=== PATIENT | female | born 2005 | race Caucasian/White ===

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

== ENCOUNTER 2023-01-15 14:55 | Emergency (ER) | payer BC, SELFPAY ==
[2023-01-15 15:03] VITALS: BP 141/71; PULSE 121; RESP 16; TEMP 36.3; O2SAT 98
--- NOTE | 2023-01-15 15:14 | ED.GENADUL_ITS ---
Discharge Plan Disposition Condition: Stable Discharge Details Chief Complaint: PsychEval Clinical Impression: Suicidal ideations, Superficial abrasion Primary Care Provider: Joshua Thomason ED Provider: Robina Riggs Home Meds and New Rx's Prescriptions: No Action budesonide-formoterol [Symbicort] 80-4.5 mcg/actuation HFA aerosol inhaler 2 puff inhalation BID PRN Rx Instructions: 2 inhalations twice daily; rinse mouth after use may use 1-2 inhalations every 4-6 hours as needed for wheezing, persistent cough; no more than 12 inhalations in a 24-hour period cholecalciferol (vitamin D3) 50 mcg (2,000 unit) capsule 50 mcg PO DAILY (DME) Aerochamber Plus Flow-Vu 1 EACH spacer 1 inhaler Inhalation PRN Qty: 1 Patient Comments: Per pt.'s mother, pt. only uses when sick. prazosin 1 mg capsule 1 mg PO QHS Qty: 30 1RF Rx Instructions: Take 1 cap 30 minutes before bedtime testosterone 50 mg/mL Solution 3.5 mg IM 4-8XD Medical Decision Making 17-year-old patient presents for evaluation of depression and suicidal ideation. Patient with significant suicidal ideation and self-harm today. They have multiple plans to hurt themselves. Patient is medically cleared for psychiatric evaluation. Signed out to oncoming provider with psychiatric evaluation pending. HPI General Date/Time Provider Initiated Documentation: 01/15/23 15:05 . HPI Narrative: 17-year-old patient presents for evaluation of suicidal ideation. Patient has longstanding history of depression with somewhat chronic suicidal ideation. Patient is much more suicidal today than usual. They did self-harm earlier today. Multiple self-inflicted wounds to bilateral arms as well as abdomen. They stated that they used a razor at that time. Immunizations are up-to-date. Patient had an appointment with a new psychiatrist via telemedicine today. The psychiatrist was concerned that patient was unable to contract for safety. Patient admits that they are unable to contract for safety. Denies any alcohol or recreational drug use. They state they have been taking her medications as prescribed. Denies any medical concerns at this time. They have been eating and drinking without difficulty. They do have a baseline essential tremor to upper extremities bilaterally. Related Data Home Medications Medication Instructions Recorded Confirmed inhalational spacing device #1 tube 11/28/16 01/15/23 (Aerochamber Plus Flow-Vu) cholecalciferol (vitamin D3) 50 50 mcg PO DAILY 01/30/22 01/15/23 mcg (2,000 unit) capsule testosterone 50 mg/mL 3.5 mg IM 4-8XD 08/22/22 01/15/23 intramuscular solution budesonide-formoterol HFA 80 2 puff inhalation BID PRN 12/02/22 01/15/23 mcg-4.5 mcg/actuation aerosol inhaler (Symbicort) prazosin 1 mg capsule 1 mg PO QHS #30 caps 12/04/22 01/15/23 Previous Rx's Medication Instructions Recorded prazosin 1 mg capsule 1 mg PO QHS #30 caps 12/04/22 Allergies Allergy/AdvReac Type Severity Reaction Status Date / Time cigarette smoke Allergy Verified 01/15/23 18:40 No Known Drug Allergies Allergy Verified 12/02/22 11:19 pollen extracts Allergy Verified 01/15/23 18:40 DUST Allergy Uncoded 01/15/23 18:40 General Stated Complaint: PsychEval SHELAI: 2 Review of Systems Psychiatric Comments: + Suicidal ideation, + self-harm PFSH All Active Problems (Updated 01/15/23 @ 19:43 by Robina Riggs MD) Superficial abrasion (Acute) 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 Seen by [facility]. at 16 now [facility] taking [facility] BMI (body mass index), pediatric, 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% for age (Acute 01/26/13) nutriotin consult and labs- Normal 02/07 Suicidal ideations (Acute 12/04/17) suicide attempt x2 Mild persistent asthma without complication (Acute 01/26/13) Insomnia (Acute 02/05/18) Depressive disorder (Acute 12/29/17) [facility] trial of Wellbutrin and Lexapro were not helpful Acanthosis nigricans (Acute) Medical History ASTHMA MILD INTERMIT - COVID-19 Learning disability Surgical History Tonsillectomy and adenoidectomy age 2 1/2 years Family History Mother Asthma Father Healthy adult on routine physical examination Social History Smoking/Tobacco Use Status: Never Second Hand Exposure: No Smoking risk assessment performed?: Yes Alcohol Intake: never Substance use type: marijuana Adopted: No Foster care: No Education Level: high school Pets and animals: Yes (1 cat) Pets and animals: cat(s) Current gender identity: trans [id number] Seatbelt use: always Helmet use: Yes Helmet use: always Water heater temp set <120 deg: Yes Fire extinguisher in home: Yes Carbon monox detector in home: Yes Firearms in home: No Do you feel safe at home: Yes Exam Narrative Exam Narrative: General: non-toxic, no respiratory distress, comfortable HEENT: normocephalic, atraumatic, lids and lashes normal, PERRL, EOMI, anicteric sclera, no conjunctival injection, moist oral mucosa Card: regular rate and rhythm, S1S2, no murmurs, rubs, or gallops Lungs: good air entry, clear to auscultation bilaterally. no wheezes, rales, rhonchi, or retractions Abd: soft, non-tender, non-distended, normal bowel sounds, no rebound or guarding, no peritoneal signs Musculoskeletal: full range of motion of arms and legs, no tenderness to palpation. no clubbing, cyanosis, or edema Neurologic: appropriate for age, strength normal Psych: alert and oriented, + suicidal ideation Skin: Multiple superficial abrasions to forearms bilaterally and anterior abdomen, no petechiae, no lesions, warm and dry Course Vital Signs Vital signs: Vital Signs Temperature 36.3 C L 01/15/23 15:03 Pulse 121 H 01/15/23 15:03 Respiratory Rate 16 01/15/23 15:03 Blood Pressure 141/71 H 01/15/23 15:03 Pulse Oximetry 98 01/15/23 15:03 Temperature 36.3 C L 01/15/23 15:03 Temperature Source Skin 01/15/23 15:03 Pulse 121 H 01/15/23 15:03 Respiratory Rate 16 01/15/23 15:03 Respiratory Effort Normal 01/15/23 15:05 Blood Pressure 141/71 H 01/15/23 15:03 Pulse Oximetry 98 01/15/23 15:03 Oxygen Delivery Method Room Air 01/15/23 15:03 Oxygen Flow Rate 0 01/15/23 15:03
[2023-01-15 16:07] LABS: Abs Immature Grans 0.02 10^3/uL (0.0-0.06); Absolute Basophil Count 0.02 10^3/uL (0.0-0.2); Absolute Eosinophil Count 0.05 10^3/uL (0.0-0.7); Absolute Lymphocyte Count 1.97 10^3/uL (1.2-3.4); Absolute Monocyte Count 0.32 10^3/uL (0.1-0.8); Absolute Neutrophil Count 3.22 10^3/uL (1.2-6.7); Basophils % 0.4; Eosinophils % 0.9; HCT 48.9 % (36.0-46.0); HGB 16.4 g/dL (11.2-15.7); Immature Grans % 0.4; Lymphocytes % 35.2; MCH 28.1 pg (27.0-33.0); MCHC 33.5 % (32.0-36.0); MCV 84 fL (80-95); MPV 11.6 fL (8.0-11.0); Monocytes % 5.7; Neutrophils % 57.4; Platelet Count 212 10^3/uL (130-400); RBC 5.84 10^6/uL (3.93-5.22); RDW 12.6 % (11.7-14.6); RDW-SD 38.6 fL
[2023-01-15 16:15] LABS: Bilirubin Moderate (Negative); Blood Trace-intact (Negative); Clarity Clear (Clear); Glucose 100 mg/dL (Negative); Ketones 40 mg/dL (Negative); Leukocyte Esterase Moderate (Negative); Nitrite Negative (Negative); pH 7.5 (5-8)
[2023-01-15 16:25] LABS: Bacteria Moderate HPF (Negative); Casts 0-2 Fine Granular LPF (Negative); Crystals Negative HPF (Negative); Epithelial Cells Rare HPF (Negative); Mucus Trace (Negative); Other Cells Few Renal (Negative); RBC 0-2 HPF (0-2)
[2023-01-15 16:26] LABS: C & S Indicated? Yes
[2023-01-15 16:28] LABS: *AMPHETAMINES SCREEN URINE Negative (Negative); *BARBITURATES SCREEN URINE Negative (Negative); *BENZODIAZEPINES SCREEN URINE Negative (Negative); Cannabinoids THC Negative (Negative); Cocaine Screen,Urine Negative (Negative); METHADONE URINE SCREEN Negative (Negative); OPIATES URINE SCREEN Negative (Negative); Tricyclic Antidepressants Negative (Negative)
[2023-01-15 16:30] LABS: Anion Gap 9.4 mmol/L (3-11); BUN 8 mg/dL (7-18); CO2 27.6 mmol/L (21.0-32.0); CREATININE 0.9 mg/dL (0.55-1.02); Calcium 9.8 mg/dL (8.5-10.1); Chloride 105 mmol/L (98-107); Estimated GFR 94.44 (mL/min/1.73m2); Glucose 116 mg/dL (74-106); Potassium 3.7 mmol/L (3.5-5.1); Sodium 142 mmol/L (136-145); TSH (W/Ref FT4) 1.02 uIU/mL (0.52-4.13)
[2023-01-15 16:32] LABS: ETHANOL BLOOD < 3.0 mg/dL (<10)
[2023-01-15 16:40] LABS: Salicylate < 2.8 mg/dL (<2.8)
[2023-01-15 16:41] LABS: Acetaminophen < 2 ug/mL (10-30)
[2023-01-15] MEDS: diphenhydrAMINE 25 MG CAP 50 MG PO (20:41)
[2023-01-15] MEDS: diazePAM 5 MG TAB PO (20:41)
[2023-01-15] MEDS: Melatonin 3 MG TAB 9 MG PO (20:41)
--- NOTE | 2023-01-15 23:02 | PDOC.MHCN_ITS ---
Date of service: 01/15/23 Time of Service: 19:10 PHQ-9 Over the last 2 weeks, how often have you been bothered by any of the following problems? 1. Little interest or pleasure in doing things: more than half the days 2. Feeling down, depressed, or hopeless: nearly every day 3. Trouble falling or staying asleep, or sleeping too much: more than half the days 4. Feeling tired or having little energy: several days 5. Poor appetite or overeating: nearly every day 6. Feeling bad about yourself - or that you are a failure or have let yourself and your family down: nearly every day 7. Trouble concentrating on things, such as reading the newspaper or watching television: more than half the days 8. Moving or speaking so slowly that other people could have noticed? - Or the opposite - being so fidgety or restless that you have been moving around a lot more than usual: more than half the days 9. Thoughts that you would be better off or of hurting yourself in some way: more than half the days Total score: 20 If you checked off any problems, how difficult have these problems made it for you to do your work, take care of things at home, or get along with other people?: somewhat difficult Source: Developed by Drs. Guy العراقي, Nika Perkins, Tio Flores and colleagues, with an educational spencer from [employer]. Suicide Severity Rate CSSRS Have you wished you were or wished you could go to sleep and not wake up?: Yes Have you actually had any thoughts of killing yourself?: Yes CSSRS2 Have you been thinking about how you might do this?: Yes Have you had these thoughts and had some intention of acting on them?: Yes Have you started to work out or worked out the details of how to kill yourself? Do you intend to carry out this plan?: Yes CSSRS3 Have you ever done anything, started to do anything or prepared to do anything to end your life?: Yes CSSRS4 Was this within the past three months?: Yes Screening Score Total Score: 8 Screening: Positive Mental Health Emergency Note Release [facility] release signed:: Yes Reason for Visit Client is Mayito Mayer 17-year-old transgender male who presented into [facility] ED tonight at the recommendation of his new therapist after their first session due to several concerning statements that the client made during that period of time. Client appeared to this typewriter mechanic as disheveled and would not make eye contact client has been off his medications for the past few days saying that they are not helping. Client reported that he wanted to and has no one to talk to so he bottles it all up client also reported that he has thoughts of himself and others causing harm to him in respect of taking him apart limb by limb, draining all his blood out of his body, taking out parts of his skull, etc. Per clients report the thoughts of violence that he has towards himself are more violent and aggressive than the thoughts he has of someone else causing violence to him. Client reported that he cannot sleep and that he has not been eating and has lost 20 to 30 pounds in the past month. Client has previously been hospitalized at [facility] twice and at [facility] both places were not helpful, and client reported previous bullying at [facility]. 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 The client answered yes to all the CSSRS questions and did identify a plan with this typewriter mechanic of an overdose in addition to having intent and access to medications that his mother keeps in the car. During the assessment the client was in fact currently having thoughts of causing harm to himself. Client engages in non-suicidal self-injury consisting of cutting and burning himself. The last time the client cut himself was earlier today and the last time the client burned himself was two months ago mother had no idea of the burning behavior. Client's mother reported that she did remove all sharps out of the house, but client went into the mother's room and took her razor that she uses to shave and proceeded to break it and cut his arms. Client reported that they use an edible once a month and that his mom and brother are the clients natural support systems. When client was asked about his strengths client made the list made-up sound, and mom suggested that one of his strengths was his schoolwork. This report he is also experiencing some hallucinations consisting of seeing shadows and figures moving and or running quickly past him. Client also reported that his PTSD is becoming more severe in addition to his depression and anxiety. Client was suggested 2 seek any patient facility treatment at this time, client decided to go voluntary but was told with the information he provided during the assessment if he chose to leave at any time during the night police would be called and he would be taken back to the Ed and held involuntarily. Client will be reassessed in the morning and hopefully will be accepted in an inpatient facility. In the last 2 weeks has the pt presented for ES prior to today?: Unknown Client Information Client is: [facility]: Yes Non Suicidal Self Injury Current: Yes, Client reported burning and cutting. History: yes, Client last cut 01/15 and last burned himself two months ago Safety Risk/Harm to Self or Others Current Ideation to Harm Self or Others: Yes to self. Intent: yes, has intent. Plan: yes,has a plan. History of suicide attempt: yes,history of suicide attempt reported. Details of previous suicide attempt: overdose Risk: Does risk to harm exist?: yes. Risk: Severe Duty to warn indicated: No Asssessment/Mental Status Appearance: Disheveled Attitude: Cooperative and Hostile Behavior: Agitated Speech: Normal Affect: Normal Mood: Stressed, Depressed, Anxious and Irritable Thought process: Unremarkable Hallucinations: yes, Visual Delusions: No evidence Attention: Unremarkable Perception: Not impaired Orientation: Fully orientated Memory: Intact Insight: Fair Judgement: Fair Neurovegetative Symptoms Sleep: Decrease Appetitie: Decrease Interests: Decrease Energy: No change Libido: Not applicable Substance Use: Other Drug Issues: Other Do you use nicotine?: No Have you used substances in the last 7 days?: No Additional Issues: Assaultive/Threatening Behavior: No Medical Concerns: No Client engaged in active self harm w/weapon: Yes Threatening to run away: No Child reported abuse/neglect: No Voluntarily presenting for services: No Domestic violence is a concern: No Extreme Psychosis or extreme behavior is present: No Plan/Disposition Recommended Disposition: Hospitalization facilities contacted. Plan: Client is Mayito Mayer 17-year-old transgender male who presented into [facility] ED tonight at the recommendation of his new therapist after their first session due to several concerning statements that the client made during that period of time. Client appeared to this typewriter mechanic as disheveled and would not make eye contact client has been off his medications for the past few days saying that they are not helping. Client reported that he wanted to and has no one to talk to so he bottles it all up client also reported that he has thoughts of himself and others causing harm to him in respect of taking him apart limb by limb, draining all his blood out of his body, taking out parts of his skull, etc. Per clients report the thoughts of violence that he has towards himself are more violent and aggressive than the thoughts he has of someone else causing violence to him. Client reported that he cannot sleep and that he has not been eating and has lost 20 to 30 pounds in the past month. Client has previously been hospitalized at [facility] twice and at [facility] both places were not helpful, and client reported previous bullying at [facility]. 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 The client answered yes to all the CSSRS questions and did identify a plan with this typewriter mechanic of an overdose in addition to having intent and access to medications that his mother keeps in the car. During the assessment the client was in fact currently having thoughts of causing harm to himself. Client engages in non-suicidal self-injury consisting of cutting and burning himself. The last time the client cut himself was earlier today and the last time the client burned himself was two months ago mother had no idea of the burning behavior. Client's mother reported that she did remove all sharps out of the house, but client went into the mother's room and took her razor that she uses to shave and proceeded to break it and cut his arms. Client reported that they use an edible once a month and that his mom and brother are the clients natural support systems. When client was asked about his strengths client made the list made-up sound, and mom suggested that one of his strengths was his schoolwork. This report he is also experiencing some hallucinations consisting of seeing shadows and figures moving and or running quickly past him. Client also reported that his PTSD is becoming more severe in addition to his depression and anxiety. Client was suggested 2 seek any patient facility treatment at this time, client decided to go voluntary but was told with the information he provided during the assessment if he chose to leave at any time during the night police would be called and he would be taken back to the Ed and held involuntarily. Client will be reassessed in the morning and hopefully will be accepted in an inpatient facility. Person reported agreement to plan: Yes Reports/communication Outcome discussed with: ED/Personnel
--- NOTE | 2023-01-16 07:18 | W.EDPROG ---
Date of service: 01/16/23 Time of Service: 07:18 Medical Decision Making Patient was signed out to me by my colleague Dr. Velasquez. Please refer to HPI, physical exam, assessment and plan. At time of signout we are pending mental health evaluation. Mental health evaluated the patient does recommend inpatient admission. Patient would like to be here voluntarily at this time. Patient is asking for something to settle down. I reviewed a litany of pharmaceutical options to help with this, and patient would like to trial melatonin, Benadryl, Valium and Haldol. This was administered and the patient tolerated this well. Patient slept well throughout the night with no interventions needed. Patient will remain in the ED pending placement Discharge Plan Disposition Condition: Stable Discharge Details Chief Complaint: PsychEval Clinical Impression: Suicidal ideations, Superficial abrasion Primary Care Provider: Joshua Thomason ED Provider: Fran León Home Meds and New Rx's Prescriptions: No Action budesonide-formoterol [Symbicort] 80-4.5 mcg/actuation HFA aerosol inhaler 2 puff inhalation BID PRN Rx Instructions: 2 inhalations twice daily; rinse mouth after use may use 1-2 inhalations every 4-6 hours as needed for wheezing, persistent cough; no more than 12 inhalations in a 24-hour period cholecalciferol (vitamin D3) 50 mcg (2,000 unit) capsule 50 mcg PO DAILY (DME) Aerochamber Plus Flow-Vu 1 EACH spacer 1 inhaler Inhalation PRN Qty: 1 Patient Comments: Per pt.'s mother, pt. only uses when sick. prazosin 1 mg capsule 1 mg PO QHS Qty: 30 1RF Rx Instructions: Take 1 cap 30 minutes before bedtime testosterone 50 mg/mL Solution 3.5 mg IM 4-8XD
--- NOTE | 2023-01-16 11:48 | ED.PROG_ITS ---
Date of service: 01/16/23 Time of Service: 11:48 Medical Decision Making Patient seen by any [facility] mental health, bed search still in progress. Patient and family updated. Unremarkable ED stay. 1530 p.m. Case discussed with Salvatore Reid APRN from [facility]. Patient accepted in transfer. Sign Out Sign Out Data: Sign Out Comment: Suicidal, depressed, not safe for home. Pending placement for inpatient rehabilitation Last updated by Fran León DO at 01/16/23 07:20 Discharge Plan Disposition Patient Disposition: Psychiatric Hospital/Unit Specific Psychiatric Facility: [facility] Condition: Stable Discharge Details Clinical Impression: Suicidal ideations, Superficial abrasion Primary Care Provider: Joshua Thomason ED Provider: Donte Leung Home Meds and New Rx's Prescriptions: No Action budesonide-formoterol [Symbicort] 80-4.5 mcg/actuation HFA aerosol inhaler 2 puff inhalation BID PRN Rx Instructions: 2 inhalations twice daily; rinse mouth after use may use 1-2 inhalations every 4-6 hours as needed for wheezing, persistent cough; no more than 12 inhalations in a 24-hour period cholecalciferol (vitamin D3) 50 mcg (2,000 unit) capsule 50 mcg PO DAILY (DME) Aerochamber Plus Flow-Vu 1 EACH spacer 1 inhaler Inhalation PRN Qty: 1 Patient Comments: Per pt.'s mother, pt. only uses when sick. prazosin 1 mg capsule 1 mg PO QHS Qty: 30 1RF Rx Instructions: Take 1 cap 30 minutes before bedtime testosterone 50 mg/mL Solution 3.5 mg IM 4-8XD
--- NOTE | 2023-01-19 15:52 | NUR.NOTE ---
Nursing Note: [facility] called asking about this patient and whether or not he was still seeking placement. I told her that he was transferred to [place].
== END 2023-01-16 15:10 ==
PROVIDERS: Emergency Medicine Emergency Medical Services; Emergency Provider Emergency Medicine; PCP Nurse Practitioner Pediatrics
DX: R45.88 Nonsuicidal self-harm (principal); S50.812A Abrasion of left forearm, initial encounter; S50.811A Abrasion of right forearm, initial encounter; X78.8XXA Intentional self-harm by other sharp object, initial encounter
CPT/HCPCS: 36415; 80048; 80307; 81025; 99285; 80320; 80329; 81003; 81015; 84443; 85025; 87086

== ENCOUNTER 2023-09-28 14:38 | Outpatient (CLI) | payer BC, SELFPAY ==
[2023-09-28 09:53] LABS: Abs Immature Grans 0.04 10^3/uL (0.0-0.06); Absolute Basophil Count 0.02 10^3/uL (0.0-0.2); Absolute Eosinophil Count 0.09 10^3/uL (0.0-0.7); Absolute Lymphocyte Count 2.76 10^3/uL (1.2-3.4); Absolute Monocyte Count 0.55 10^3/uL (0.1-0.8); Basophils % 0.3; Eosinophils % 1.3; HGB 16.4 g/dL (11.2-15.7); Immature Grans % 0.6; Lymphocytes % 38.5; MCH 28.1 pg (27.0-33.0); MCHC 32.8 % (32.0-36.0); MCV 86 fL (80-95); MPV 10.6 fL (8.0-11.0); Monocytes % 7.7; Neutrophils % 51.6; Platelet Count 224 10^3/uL (130-400); RBC 5.83 10^6/uL (3.93-5.22); RDW 12.3 % (11.7-14.6); RDW-SD 38.4 fL; WBC 7.16 10^3/uL (4.4-10.8)
[2023-10-04 10:28] LABS: Testosterone, Total 405 ng/dL (8-60)
== END 2023-09-28 14:39 | disposition home or self-care (01) ==
LOC: LBO 14:39
PROVIDERS: PCP Nurse Practitioner Pediatrics; Visit Provider Advanced Practice Midwife
DX: F64.8 Other gender identity disorders (principal)
CPT/HCPCS: 36415; 84403; 85025

== ENCOUNTER 2023-11-07 06:56 | Inpatient (IN) | payer BC, SELFPAY ==
[2023-11-07] VITALS (117 sets, daily range): BP systolic 96–256; BP diastolic 38–235; PULSE 70–156; RESP 11–38; TEMP 36.4–36.8; O2SAT 91–99
--- NOTE | 2023-11-07 07:00 | RT.EKG_ITS ---
APPROVED REPORT Exam: Resting ECG Reason for Exam: rapid heart rate Patient Location: E HR:149 bpm ECG Measurements Heart Rate 149 AXIS OH 122 P 18 QRSd 88 QRS 47 QT 274 T -5 QTc 431 Conclusion Sinus tachycardia 149 normal qTC
--- NOTE | 2023-11-07 07:31 | ED.GENADUL_ITS ---
Discharge Plan Disposition Patient Disposition: Admit to [facility] Condition: Stable Discharge Details Chief Complaint: PsychEval Clinical Impression: Intentional overdose, Gender dysphoria, Depressive disorder, Tachycardia Primary Care Provider: Joshua Thomason ED Provider: Jung Hamilton Home Meds and New Rx's Prescriptions: No Action budesonide-formoterol [Symbicort] 80-4.5 mcg/actuation HFA aerosol inhaler 2 puff inhalation BID PRN Rx Instructions: 2 inhalations twice daily; rinse mouth after use may use 1-2 inhalations every 4-6 hours as needed for wheezing, persistent cough; no more than 12 inhalations in a 24-hour period venlafaxine 75 mg capsule,extended release 24hr 75 mg PO DAILY Qty: 30 2RF Rx Instructions: Take 1 cap daily prazosin 2 mg capsule 2 mg PO QHS Qty: 30 2RF Rx Instructions: Take 1 cap 30 minutes before bedtime cholecalciferol (vitamin D3) 50 mcg (2,000 unit) capsule 50 mcg PO DAILY (DME) Aerochamber Plus Flow-Vu 1 EACH spacer 1 inhaler Inhalation PRN Qty: 1 Patient Comments: Per pt.'s mother, pt. only uses when sick. testosterone 50 mg/mL Solution 3.5 mg IM 4-8XD propranolol 10 mg tablet 10 mg PO DAILY Patient Comments: TAKE ONE TABLET BY MOUTH EVERY MORNING MAY USE ONE TABLET EVERY 24HRS FOR BREAKTHROUGH ANXIETY venlafaxine 37.5 mg capsule,extended release 24hr 112.5 mg PO QHS Patient Comments: TAKE THREE CAPSULES BY MOUTH AT BEDTIME testosterone cypionate 200 mg/mL oil 200 mg IM Q7D Patient Comments: INJECT 0.5ML INTO THE SHOULDER, THIGH, OR BUTTOCKS EVERY 7 DAYS HPI General Date/Time Provider Initiated Documentation: 11/07/23 07:14 . Limitations to Documentation: no limitations . Information obtained by: patient and family . HPI Narrative: 26-year-old female > male transgender with past medical history of depression, anxiety, asthma presents for evaluation after overdose. Patient reports intentional overdose at 6:30 AM in an attempt to end his life. He states that he took 4-5 of his prazosin tablets. He thinks he took at least 15 of the venlafaxine though he does not remember how much. He states it was a lot . He also cut his bilateral arms superficially. He reports he has had prior suicide attempts and his last hospitalization was in 2022 at [facility]. He denies any alcohol or drug use today. He states that he should have killed himself because dying is way cheaper than the hospital bill. he states that he does not want to be admitted to a psychiatric hospital. Related Data Home Medications Medication Instructions Recorded Confirmed inhalational spacing device #1 tube 11/28/16 11/07/23 (Aerochamber Plus Flow-Vu) cholecalciferol (vitamin D3) 50 50 mcg PO DAILY 01/30/22 11/07/23 mcg (2,000 unit) capsule testosterone 50 mg/mL 3.5 mg IM 4-8XD 08/22/22 11/07/23 intramuscular solution budesonide-formoterol HFA 80 2 puff inhalation BID PRN 12/02/22 11/07/23 mcg-4.5 mcg/actuation aerosol inhaler (Symbicort) prazosin 2 mg capsule 2 mg PO QHS #30 caps 04/29/23 11/07/23 venlafaxine 75 mg capsule,extended 75 mg PO DAILY #30 caps 04/29/23 11/07/23 release 24 hr propranolol 10 mg tablet 10 mg PO DAILY 11/07/23 11/07/23 testosterone cypionate 200 mg/mL 200 mg IM Q7D 11/07/23 11/07/23 intramuscular oil venlafaxine 37.5 mg 112.5 mg PO QHS 11/07/23 11/07/23 capsule,extended release 24 hr Previous Rx's Medication Instructions Recorded prazosin 2 mg capsule 2 mg PO QHS #30 caps 04/29/23 venlafaxine 75 mg capsule,extended 75 mg PO DAILY #30 caps 04/29/23 release 24 hr Allergies Allergy/AdvReac Type Severity Reaction Status Date / Time cigarette smoke Allergy Unknown Other (See Verified 11/07/23 10:34 Comment) No Known Drug Allergies Allergy Other (See Verified 11/07/23 10:34 Comment) pollen extracts Allergy Other (See Verified 11/07/23 10:34 Comment) DUST Allergy Unknown Other (See Uncoded 11/07/23 10:34 Comment) General Stated Complaint: PsychEval SHELIA: 2 Exam Narrative Exam Narrative: Review of Systems: All systems reviewed & are unremarkable except as noted in HPI and below Well-developed, no acute distress, alert NCAT PERRL, normal conjunctiva Tachycardic, no murmurs Unlabored respiratory effort, no increased work of breathing, no tachypnea, clear breath sounds bilaterally, no hypoxia Nondistended abdomen , soft Extremities w/o deformity, no cyanosis, no edema Bilateral upper extremity with multiple superficial linear cuts Bilateral upper extremity mild tremor noted + Anxious, depressed, suicidal Course Vital Signs Vital signs: Vital Signs Pulse 156 H 11/07/23 07:05 Respiratory Rate 20 11/07/23 07:05 Blood Pressure 159/110 H 11/07/23 07:05 Pulse Oximetry 99 11/07/23 07:05 Pulse 156 H 11/07/23 07:05 Respiratory Rate 20 11/07/23 07:05 Blood Pressure 159/110 H 11/07/23 07:05 Pulse Oximetry 99 11/07/23 07:05 Oxygen Delivery Method Room Air 11/07/23 07:05 Oxygen Flow Rate 0 11/07/23 07:05 Medical Decision Making Emergent evaluation of intentional overdose. Initial differential includes cardiac dysrhythmia, toxidrome, major depressive disorder, borderline personality disorder. Patient reports intentional ingestion of pills just prior to arrival. The poison control center was contacted for guidance. They report significant toxicity of the venlafaxine at greater than 8 g. They recommend charcoal at greater than 4.5 g. Patient has a bottle of 37.5 mg tabs quantity 90. There are 15 pills left in the bottle. Will need to confirm with the pharmacy when this bottle was filled and how many pills should still be in there to determine the total number that he may have taken. Based on maximum amount that would have been in the bottle, only 3.375 g available to the patient. The prazosin 2 mg tabs were dispensed at a quantity of 30, there were 17 pills left in the bottle. Right now he has not signs of hypotension. He is tachycardic which is likely secondary to the venlafaxine. His QR S and QTc intervals are within normal limits. Will continue supportive care with benzodiazepine and IV fluid resuscitation. Will check lab work for additional derangement. Patient will need 24 hours to be medically cleared, given the lacerations and statements and overdose, I am highly concerned about the patient's mental health. A CPS it was been ordered. Patient will likely benefit from mental health evaluation and hospitalization once medically cleared. I spoke with the pharmacy, the venlafaxine was last dispensed on October 11. Based on the prescription, there should be 12 pills left in the bottle however there are currently 15 pills left in the bottle. I asked the patient about this and he says that he has been storing them for the last several days with the intent to overdose. His heart rate is improving. 111 when he is asleep. Tremor seems to have improved. Otherwise mental status is stable. Lab work reviewed. Mild leukocytosis. VBG without acidosis. Renal function and LFTs within normal limits. TSH slightly elevated, but free T4 within normal limits. Other toxicology lab work is unremarkable. Magnesium 1.8, given the cardiotoxicity of the venlafaxine, a supplemental dose of magnesium has been given. will be admitted to hospitalist for further management. Medical Records Medical records reviewed: Yes I reviewed the patient's medical records. Lab Data Lab results reviewed: Yes I reviewed the patient's lab results. ECG Data Attestation: I personally reviewed and interpreted this ECG (s) as follows: Interpretation: Sinus tachycardia, 149, QTc 431 Repeat EKG sinus tachycardia 109, QTc 408 Quality:[facility] Health Related Social Needs: No Data to Display Critical Care Time Critical Care Time Critical Care Time: Yes Total Critical Care Time: 35 Attestation: CRITICAL CARE Upon my evaluation, this patient had a high probability of imminent or life- threatening deterioration due to toxic ingestion which required my direct attention, intervention, and personal management. I have personally provided 35 minutes of critical care time exclusive of time spent on separately billable procedures. Time includes review of laboratory data, radiology results, discussion with consultants, and monitoring for potential decompensation. Interventions were performed as documented above [facility] All Active Problems (Updated 11/07/23 @ 11:00 by Jung Hamilton MD) Tachycardia (Acute) Intentional overdose (Acute) 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 Seen by [facility]. at 16 now followed by [facility] taking testosterone BMI (body mass index), pediatric, 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% for age (Acute 01/26/13) nutriotin consult and labs- Normal 02/07 Suicidal ideations (Acute 12/04/17) suicide attempt x2. Hospitalization at [facility] 01/16 -01/21 2023 Mild persistent asthma without complication (Acute 01/26/13) Insomnia (Acute 02/05/18) Depressive disorder (Acute 12/29/17) needs new counselor - mariia Hurd hospitalizations x 4 trial of Wellbutrin and Lexapro were not helpful. Now on Venlafaxine Acanthosis nigricans (Acute) Medical History COVID-19 Learning disability ASTHMA MILD INTERMIT - Surgical History Tonsillectomy and adenoidectomy age 2 1/2 years Family History Mother Asthma Father Healthy adult on routine physical examination Social History Smoking/Tobacco Use Status: Never Second Hand Exposure: No Smoking risk assessment performed?: Yes Alcohol Intake: never Drug use: Occasionally Substance use type: marijuana Adopted: No Foster care: No Education Level: high school Pets and animals: Yes (1 cat) Pets and animals: cat(s) Current gender identity: trans [id number] Seatbelt use: always Helmet use: Yes Helmet use: always Water heater temp set <120 deg: Yes Fire extinguisher in home: Yes Carbon monox detector in home: Yes Firearms in home: No Do you feel safe at home: Yes
[2023-11-07] MEDS: Normal Saline 1,000 ML 1000 ML IV (07:37)
[2023-11-07] MEDS: LORazepam 2 MG/ML VIAL IVP (07:37)
[2023-11-07] MEDS: diazePAM 10 MG/2 ML SYR 2.5 MG IVP ×3 (07:46→09:21)
[2023-11-07 07:55] LABS: Abs Immature Grans 0.05 10^3/uL (0.0-0.06); Absolute Basophil Count 0.02 10^3/uL (0.0-0.2); Absolute Eosinophil Count 0.06 10^3/uL (0.0-0.7); Absolute Monocyte Count 0.81 10^3/uL (0.1-0.8); Absolute Neutrophil Count 6.41 10^3/uL (1.2-6.7); Basophils % 0.2; Eosinophils % 0.5; HGB 17.4 g/dL (11.2-15.7); Immature Grans % 0.4; Lymphocytes % 38.4; MCH 28.4 pg (27.0-33.0); MCHC 33.5 % (32.0-36.0); MCV 85 fL (80-95); MPV 11.1 fL (8.0-11.0); Monocytes % 6.8; Neutrophils % 53.7; Platelet Count 213 10^3/uL (130-400); RBC 6.13 10^6/uL (3.93-5.22); RDW 12.3 % (11.7-14.6); RDW-SD 38.2 fL; WBC 11.94 10^3/uL (4.4-10.8)
[2023-11-07 07:56] LABS: Absolute Lymphocyte Count 4.58 10^3/uL (1.2-3.4)
[2023-11-07] MEDS: Mupirocin 2% Oint. 22 GM TUBE TP (07:58)
[2023-11-07 08:10] LABS: Magnesium 1.8 mg/dL (1.8-2.4); PHOSPHORUS 3.1 mg/dL (2.6-4.7)
[2023-11-07 08:14] LABS: Creatine Kinase 140 U/L (26-192)
[2023-11-07 08:16] LABS: Acetaminophen < 2 ug/mL (10-30); Salicylate < 2.8 mg/dL (<2.8)
[2023-11-07 08:20] LABS: ALT 52 U/L (14-59); AST 21 U/L (15-37); Albumin 4.2 g/dL (3.4-5.0); Alkaline Phosphatase 76 U/L (46-116); Anion Gap 12.3 mmol/L (3-11); BUN 16 mg/dL (7-18); Bilirubin, Total 0.4 mg/dL (0.2-1.0); CO2 23.7 mmol/L (21.0-32.0); CREATININE 0.9 mg/dL (0.55-1.02); Calcium 9.2 mg/dL (8.5-10.1); Chloride 104 mmol/L (98-107); Estimated GFR 93.86 (mL/min/1.73m2); Glucose 93 mg/dL (74-106); Potassium 3.6 mmol/L (3.5-5.1); Sodium 140 mmol/L (136-145); TSH (W/Ref FT4) 4.75 uIU/mL (0.36-3.74); Total Protein 7.4 g/dL (6.4-8.2)
[2023-11-07 08:22] LABS: ETHANOL BLOOD < 3.0 mg/dL (<10)
[2023-11-07] MEDS: MAGNESIUM SULFATE 2 GM/50 ML BAG IVINF (08:29)
[2023-11-07 08:37] LABS: FREE T4 1.15 ng/dL (0.76-1.46)
[2023-11-07 09:01] LABS: BE (Venous) -2 mmol/L (-2-3); HCO3 (Venous) 23 mmol/L (23-28); O2 Sat (Venous) 96 %; TCO2 (Venous) 20 mmol/L (24-29); pCO2 (Venous) 38 mmHg (41-51); pH (Venous) 7.39 (7.31-7.41); pO2 (Venous) 74 mmHg
[2023-11-07] MEDS: Normal Saline Flush 10 ML SYR IVP ×2 (10:30→18:05)
--- NOTE | 2023-11-07 10:30 | RT.EKG_ITS ---
APPROVED REPORT Exam: Resting ECG Reason for Exam: overdose Patient Location: E HR:109 bpm ECG Measurements Heart Rate 109 AXIS MD 138 P 14 QRSd 86 QRS 26 QT 302 T 6 QTc 408 Conclusion Sinus tachycardia. 109 QTC 408
[2023-11-07] MEDS: Ondansetron 4 MG/2 ML VIAL IVP (10:45)
--- NOTE | 2023-11-07 12:50 | W.PCEDHO ---
Registration Status: REG ER Primary Language: Preferred Language: Sami ED Information & Data Chief Complaint PsychEval 11/07/23 07:41 Chief Complaint PsychEval 11/07/23 07:33 Triage Note @0630 took 4-5 prazosin, 11/07/23 07:05 more than 15 venlafaxine. trying to end life Medical / Surgical History (Last Reviewed 11/07/23 @ 07:34 by Jung Hamilton MD) COVID-19 Learning disability ASTHMA (Last Reviewed 11/07/23 @ 07:34 by Jung Hamilton MD) Tonsillectomy and adenoidectomy Most Recent Vital Signs Temperature 36.4 C 11/07/23 12:16 Temperature Source Temporal Artery Scan 11/07/23 12:16 Pulse 82 11/07/23 12:15 Pulse 104 H 11/07/23 12:15 Respiratory Rate 18 11/07/23 12:15 Respiratory Effort Normal 11/07/23 07:41 Blood Pressure 116/67 11/07/23 12:15 Blood Pressure Mean 80 11/07/23 12:15 Pulse Oximetry 95 11/07/23 12:15 Respiratory End-tidal CO2 45 11/07/23 12:15 Oxygen Delivery Method Nasal Cannula 11/07/23 10:52 Oxygen Flow Rate 2 11/07/23 10:52 Allergies cigarette smoke Allergy (Unknown, Verified 11/07/23 10:34) Other (See Comment) Unknown No Known Drug Allergies Allergy (Verified 11/07/23 10:34) Other (See Comment) Unknown pollen extracts Allergy (Verified 11/07/23 10:34) Other (See Comment) Unknown DUST Allergy (Unknown, Uncoded 11/07/23 10:34) Other (See Comment) Unknown Precautions Isolation Standard precaution 11/07/23 07:41 Active Medications Generic Name Dose Route Start Last Admin Trade Name Freq PRN Reason Stop Dose Admin Sodium Chloride 0 ml 11/07/23 08:30 11/07/23 10:30 Normal Saline Flush 10 Ml Syr IVP 10 ml BID DHAVAL Administration IV IV Catheter Type [Left Forearm Peripheral IV ] IV Catheter Type [Right Saline Lock Antecubital] IV Catheter Gauge [Left 20 Forearm] IV Catheter Gauge [Right 18 Antecubital] Diagnostics 11/07/23 11/07/23 Range/Units 08:57 07:30 WBC 11.94 H (4.4-10.8) 10^3/uL RBC 6.13 H (3.93-5.22) 10^6/uL Hgb 17.4 H (11.2-15.7) g/dL Hct 52.0 H (36.0-46.0) % MCV 85 (80-95) fL MCH 28.4 (27.0-33.0) pg MCHC 33.5 (32.0-36.0) % RDW 12.3 (11.7-14.6) % Plt Count 213 (130-400) 10^3/uL MPV 11.1 H (8.0-11.0) fL Immature Gran % 0.4 Neutrophils % 53.7 Lymphocytes % 38.4 Monocytes % 6.8 Eosinophils % 0.5 Basophils % 0.2 Nucleated RBC % 0.0 (0.0-0.3) % Absolute Neutrophils 6.41 (1.2-6.7) 10^3/uL Absolute Lymphocytes 4.58 H (1.2-3.4) 10^3/uL Absolute Monocytes 0.81 H (0.1-0.8) 10^3/uL Absolute Eosinophils 0.06 (0.0-0.7) 10^3/uL Absolute Basophils 0.02 (0.0-0.2) 10^3/uL VBG pH 7.39 (7.31-7.41) VBG pCO2 38 L (41-51) mmHg VBG pO2 74 mmHg VBG HCO3 23 (23-28) mmol/L VBG Total CO2 20 L (24-29) mmol/L VBG O2 Saturation 96 % VBG Base Excess -2 (-2-3) mmol/L Sodium 140 (136-145) mmol/L Potassium 3.6 (3.5-5.1) mmol/L Chloride 104 (98-107) mmol/L Carbon Dioxide 23.7 (21.0-32.0) mmol/L Anion Gap 12.3 H (3-11) mmol/L BUN 16 (7-18) mg/dL Creatinine 0.9 (0.55-1.02) mg/dL Est GFR (CKD-EPI 2020) 93.86 (mL/min/1.73m2) Glucose 93 (74-106) mg/dL Calcium 9.2 (8.5-10.1) mg/dL Phosphorus 3.1 (2.6-4.7) mg/dL Magnesium 1.8 (1.8-2.4) mg/dL Total Bilirubin 0.4 (0.2-1.0) mg/dL AST 21 (15-37) U/L ALT 52 (14-59) U/L Alkaline Phosphatase 76 (46-116) U/L Creatine Kinase 140 (26-192) U/L Total Protein 7.4 (6.4-8.2) g/dL Albumin 4.2 (3.4-5.0) g/dL TSH 4.75 H (0.36-3.74) uIU/mL Free T4 1.15 (0.76-1.46) ng/dL Salicylates < 2.8 (<2.8) mg/dL Acetaminophen < 2 (10-30) ug/mL Ethyl Alcohol < 3.0 (<10) mg/dL Intake and Output - 24 Hour Total 11/07/23 06:56 thru 11/07/23 10:26 Intake Total 1060 Balance 1060 Weight 92.079 kg Intake: IV 1060 Falls Risk Assessment History of Falls No History 11/07/23 07:41 Contributing Factors No Factors 11/07/23 07:41 Ambulatory Aids Independent 11/07/23 07:41 Tubes/Lines None 11/07/23 07:41 Gait Evaluation No gait disturbance 11/07/23 07:41 Fall Total Score 0 11/07/23 07:41 Level of Risk Standard/Low Risk 11/07/23 07:41 Problems (Last Reviewed 11/07/23 @ 07:34 by Jung Hamilton MD) Tachycardia (Acute) Intentional overdose (Acute) Gender dysphoria (Acute) Depressive disorder (Acute 12/29/17) v v v v v v v v v Sending and/or Receiving Nurses: Please use comment section below to note any information pertinent to the patient hand-off not included above. Information / Comments: Report received from:Natalie Odell all questions answered
[2023-11-07] MEDS: Enoxaparin 40 MG/0.4 ML SYR SC (14:33)
--- NOTE | 2023-11-07 14:45 | HPE_ITS ---
Date of service: 11/07/23 Time of Service: 14:45 Assessment and Plan Assessment and plan (1) Intentional overdose: Status: Acute Assessment and plan: OD of venlafaxine, needs monitoring overnight for arrhythmias and serotonin syndrome. Qualifiers: Encounter type: initial encounter Qualified Code(s): T50.902A - Poisoning by unspecified drugs, medicaments and biological substances, intentional self-harm, initial encounter (2) Suicidal ideations: Status: Acute Assessment and plan: patient has hx of prior suicidal attempts and will need mental health evaluation tomorrow (3) Depressive disorder: Status: Acute (4) Gender dysphoria: Status: Acute (5) DVT prophylaxis: Status: Acute Assessment and plan: enoxaparin 40 mg SC daily History of Present Illness History of Present Illness Chief Complaint: suicide attempt, intentional medication overdose, depression Narrative: 18-year-old female > male transgender with past medical history of depression, anxiety, asthma presents for evaluation after overdose. Patient reports taking an overdose of prazosin and Effexor and has been doing cutting on his arms. Unclear as to the exact number of pills the patient took but per the ED providers calculations w/ the assistance of the pharmacy, the patient had a 90 pills of venlafaxine 37.5 mg filled on October 11 and should have leeroy 12 pills left but there were 15 pills left in the bottle. When confronted on this the patient told the ED provider that he had not been taking the pills for several days and saving them to OD on them. Even if he had taken all but the last 15 pills that are in the bottle this would have bene 75 pills x 37.5 mg = 2.8125 grams total. Per ED discussion w/ Poison Control, activated charcoal was not recommended. EKG did not show any QTC widening. Patient also had prazosin bottle of 2 mg tablets bottle of 30 and 17 were left in the bottle so the most that he could have taken was 13. He reportedly only took, a few, however he has been somnolent since admission. He reports that he has attempted suicide in the past and was hospitalized last fall in [facility]. Salicylate and APAP levels were below the levels of detection blood alcohol level also was negative Review of Systems All systems reviewed & are unremarkable except as noted in HPI and below PFSH All Active Problems (Updated 11/07/23 @ 15:43 by Dusty Devine MD) DVT prophylaxis (Acute) Tachycardia (Acute) Intentional overdose (Acute) 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 Seen by [facility]. at 16 now [facility] by [facility] taking testosterone BMI (body mass index), pediatric, 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% for age (Acute 01/26/13) nutriotin consult and labs- Normal 02/07 Suicidal ideations (Acute 12/04/17) suicide attempt x2. Hospitalization at [facility] 01/16 -01/21 2023 Mild persistent asthma without complication (Acute 01/26/13) Insomnia (Acute 02/05/18) Depressive disorder (Acute 12/29/17) needs new counselor - sp [facility] hospitalizations x 4 trial of Wellbutrin and Lexapro were not helpful. Now on Venlafaxine Acanthosis nigricans (Acute) Medical History COVID-19 Learning disability ASTHMA MILD INTERMIT - Surgical History Tonsillectomy and adenoidectomy age 2 1/2 years Family History Mother Asthma Father Healthy adult on routine physical examination Social History Smoking/Tobacco Use Status: Never Second Hand Exposure: No Smoking risk assessment performed?: Yes Alcohol Intake: never Drug use: Occasionally Substance use type: marijuana Adopted: No Foster care: No Housing: house Education Level: high school Pets and animals: Yes (1 cat) Pets and animals: cat(s) Current gender identity: trans [id number] Seatbelt use: always Helmet use: Yes Helmet use: always Water heater temp set <120 deg: Yes Fire extinguisher in home: Yes Carbon monox detector in home: Yes Firearms in home: No Do you feel safe at home: Yes Meds Allergies and Home Medications Allergies Allergy/AdvReac Type Severity Reaction Status Date / Time cigarette smoke Allergy Unknown Other (See Verified 11/07/23 10:34 Comment) No Known Drug Allergies Allergy Other (See Verified 11/07/23 10:34 Comment) pollen extracts Allergy Other (See Verified 11/07/23 10:34 Comment) DUST Allergy Unknown Other (See Uncoded 11/07/23 10:34 Comment) Home Medications Medication Instructions Recorded Confirmed Type inhalational spacing device #1 tube 11/28/16 11/07/23 History (Aerochamber Plus Flow-Vu) cholecalciferol (vitamin D3) 50 50 mcg PO DAILY 01/30/22 11/07/23 History mcg (2,000 unit) capsule budesonide-formoterol HFA 80 2 puff inhalation BID PRN 12/02/22 11/07/23 History mcg-4.5 mcg/actuation aerosol inhaler (Symbicort) prazosin 2 mg capsule 2 mg PO QHS #30 caps 04/29/23 11/07/23 Rx propranolol 10 mg tablet 10 mg PO DAILY 11/07/23 11/07/23 History testosterone cypionate 200 mg/mL 200 mg IM Q7D 11/07/23 11/07/23 History intramuscular oil venlafaxine 37.5 mg 112.5 mg PO QHS 11/07/23 11/07/23 History capsule,extended release 24 hr Exam Narrative Exam Narrative: Short. Hirsuit, bearded appearing transgender female >male who is quite somnolent but awakens and answers my questions before falling back to sleep has trouble sustaining attention. HEENT is remarkable for widely dilated pupils that are reactive full ocular motion intact no scleral icterus Neck supple no JVD no thyromegaly no cervical adenopathy Lungs clear to auscultation Heart is regular rate and rhythm without murmur rub or gallop Gynecomastia present Abdomen obese soft nontender no organomegaly or bruits Extremities no peripheral cyanosis or edema arms have superficial cutting charles on the volar surfaces of both arms but there is no deep wounds and no purulent drainage Neuro exam other than being somnolent no focal cranial nerve findings no focal motor deficits Results Labs 11/07/23 07:30 11/07/23 07:30 Labs: Laboratory Results - last 24 hr 11/07/23 11/07/23 07:30 08:57 WBC 11.94 H RBC 6.13 H Hgb 17.4 H Hct 52.0 H MCV 85 MCH 28.4 MCHC 33.5 RDW 12.3 Plt Count 213 MPV 11.1 H Immature Gran % 0.4 Neutrophils % 53.7 Lymphocytes % 38.4 Monocytes % 6.8 Eosinophils % 0.5 Basophils % 0.2 Nucleated RBC % 0.0 Absolute Neutrophils 6.41 Absolute Lymphocytes 4.58 H Absolute Monocytes 0.81 H Absolute Eosinophils 0.06 Absolute Basophils 0.02 VBG pH 7.39 VBG pCO2 38 L VBG pO2 74 VBG HCO3 23 VBG Total CO2 20 L VBG O2 Saturation 96 VBG Base Excess -2 Sodium 140 Potassium 3.6 Chloride 104 Carbon Dioxide 23.7 Anion Gap 12.3 H BUN 16 Creatinine 0.9 Est GFR (CKD-EPI 2020) 93.86 Glucose 93 Calcium 9.2 Phosphorus 3.1 Magnesium 1.8 Total Bilirubin 0.4 AST 21 ALT 52 Alkaline Phosphatase 76 Creatine Kinase 140 Total Protein 7.4 Albumin 4.2 TSH 4.75 H Free T4 1.15 Salicylates < 2.8 Acetaminophen < 2 Ethyl Alcohol < 3.0 Last Vital Signs Temp 36.5 C 11/07/23 13:09 Pulse 115 H 11/07/23 13:09 Resp 25 H 11/07/23 13:09 BP 109/55 L 11/07/23 13:09 Pulse Ox 94 11/07/23 13:09 PAWSS Have you Been Recently Intoxicated or Drunk Within the Last 30 days?: No Have you Ever Experienced Previous Episodes of Alcohol Withdrawal?: No Have you ever Experienced Withdrawal Seizures?: No Have you ever Experienced Delirium Tremens(DT)s?: No Have you ever undergone Alcohol Rehabilitation Treatment (i.e, inpt ot outpatient treatment programs)?: No Have you ever Experienced Blackouts?: No Have you ever Combined Alcohol with other Downers within the last 90 days?: No Have you ever Combined Alcohol with any other Substance of Abuse during the last 90 days?: No Positive Blood Alcohol level on Presentation? [PCS.BAL]: No Evidence of Increased Autonomic Activity (i.e. HR>120, tremor, sweating, agitation, nausea)?: No Result: 0 Time Spent Time spent with Patient: 40-54 minutes Time was spent: preparing to see the patient(eg.review tests), obtaining and/or reviewing separately otained hiistory, ordering medications,tests, procedures, referring, communicating with other health inpatient care manager rn, indepentently interpreting results, counseling the patient and care coordination
--- NOTE | 2023-11-07 19:08 | PDOC.CMSAFE ---
Date of service: 11/07/23 Time of Service: 19:08 Care Management Safety Plan Status Status: Interim Reason for Wait Reason for Wait: Medical Clearance Safety Plan Safety Plan: Chief Complaint: Mayito was admitted to the ICU, and is being closely monitored after an intentional overdose on his medication. He is a biological female, transgender male. He lives with his parents, who are very supportive. He has had several admissions to [facility] in the past, and is known to [facility], where he receives support. CM will respond to the ICU to assess patient after patient has been medically cleared and assessed by screener. If screener deems patient meets criteria for psychiatric stabilization CM will facilitate interdepartmental huddle with [facility] screener for safety planning considerations and meet with patient to review [facility] policy and safety plan, establish individual wishes for treatment and maintain patient rights. In the interim; please note safety plan below to guide patient care while awaiting further assessment in the ED.? SAFETY PLAN: 1. Will remain on suicide precautions and in paper clothes or hospital gown. ? 2. Will remain in room under direct supervision of one-on-one staff at all times provided by AVERY, GRAIN MILLER HELPER executive creative director. 3. May have paper cups, plates, finger foods as well as a cardboard spoon with which to eat meals. 4. Follow [facility] Management of the Admitted Behavioral Health Patient policy. 5. Personal care: Comfort bath system only at this time. 6. Bathroom privileges: with escort in ED. Available in room without limitation on Med/Surg/ICU. 6. No personal belongings at this time; per RN discretion. 7. Parents may visit, at RN discretion. 8. Phone contact: incoming/outcoming calls via [facility] cordless phone, at RN discretion. 9. Activities: Music tablet per RN discretion. Med/Surg: Television and remote available at RN discretion. 10. Due to VOLUNTARY status, if patient wishes to leave [facility], staff will contact [facility] Crisis Screener ([phone]) and On-Call Casting Repairer ([phone]) as soon as possible. In the event of elopement, notify [facility] Police ([phone]). ? If deemed appropriate for inpatient psychiatric care, safety plan will be established with patient, and care team, to adhere to patient goals, identify restrictions based on behavioral status, address nutrition, and determine allowed personal belongings, tools for hygiene and personal care. As well plan will determine level of activity including ambulation, level of supervision, visitors, and determine privileges based on level of acuity, behaviors and level of engagement by patient.
--- NOTE | 2023-11-07 19:12 | PDOC.CMPRO ---
Date of service: 11/07/23 Time of Service: 19:12 Care Management Progress Note Progress Note Text Progress Note Text: S/O: Mayito was admitted to the ICU today after taking an intentional overdose of his medications. Per report, he is very sleepy at this time. He is being closely monitored, and is not medically cleared. CM met with his parents, whom he lives with, and are very supportive. Mayito is a biological female, transgender male, who began his transition when he was 15, per family. Mayito's parents discussed how Mayito has had a difficult few years, as he has been struggling with his mental health during this transition. They stated that Mayito went to [employer] school, where he did well. He is currently not working, and his father stated that he often stays in his room, and does not leave the house, unless the family is going out of town together. His mother stated that they were making plans to go visit Mayito' brother in [place] next weekend, who is also a support for Mayito. CM discussed the expectations of this hospitalization, stating that Mayito is not currently medically cleared, and is being closely monitored in the ICU. Once he becomes medically cleared, he will be assessed by [facility], who will help develop a plan with Mayito for his discharge. He will likely return home with a safety plan vs inpatient psychiatric stabilization. Benito and Anamaria (parents) stated that they will support Mayito 100%, no matter what the plan ends up being. CM huddled with staff in the ED this morning, and again discussed his care with the ORCHID SUPERINTENDENT. An interim safety plan has been placed. CM will reassess the plan tomorrow with [facility], Mayito, and his family. CM will continue to follow. A: Mayito is a 18 year old transgender male admitted to [facility] for intentional overdose. P: Mayito is not yet medically cleared. Once he is medically cleared, he will be assessed by [facility] to help determine his discharge plan. CM will facilitate an interdisciplinary huddle daily. His transport will depend on his disposition. CM will continue to follow. SDOH(Care Management) Screening Will the Patient Participate in the Screening?: Yes Do you worry about having a steady place to live?: no Problems where you live: no known problems In the past 12 months, have you had to go without electric, gas, oil or water in your home?: no Have you or anyone in your house had to go without enough food to eat?: no Has lack of transportation kept you from medical appointments or from doing things needed for daily living?: no Has anyone in your support network made you feel unsafe for any reason?: no
[2023-11-07 19:17] LABS: Bilirubin Negative (Negative); Blood Negative (Negative); Clarity Clear (Clear); Glucose Negative (Negative); Ketones Negative (Negative); Leukocyte Esterase Negative (Negative); Nitrite Negative (Negative); Specific Gravity >= 1.030 (1.005-1.025); Urobilinogen 0.2 mg/dL (Up to 0.2)
[2023-11-07 19:32] LABS: *AMPHETAMINES SCREEN URINE Negative (Negative); *BARBITURATES SCREEN URINE Negative (Negative); *BENZODIAZEPINES SCREEN URINE Positive (Negative); Cannabinoids THC Negative (Negative); Cocaine Screen,Urine Negative (Negative); METHADONE URINE SCREEN Negative (Negative); OPIATES URINE SCREEN Negative (Negative)
[2023-11-07 19:36] LABS: Tricyclic Antidepressants Negative (Negative)
[2023-11-08] VITALS (15 sets, daily range): BP systolic 85–129; BP diastolic 48–97; PULSE 69–102; RESP 14–41; TEMP 35.9–36.6; O2SAT 94–95
[2023-11-08] MEDS: Normal Saline Flush 10 ML SYR IVP (09:49)
--- NOTE | 2023-11-08 10:12 | PDOC.CMPRO ---
Date of service: 11/08/23 Time of Service: 10:12 Care Management Progress Note Progress Note Text Progress Note Text: Mayito was sitting up in bed when CM met with him. His mother was in the room visiting. They had just met with BEL Mcgee, who created an active safety plan in order for Mayito to return home with the support of his parents. Mayito will follow up with BEL via phone tomorrow at 3pm, and will meet with his therapist on Thursday11/11/23. Mayito and his mother were both happy with the plan to return home, and feel confident that they can follow the safety plan and remain safe in the community. CM will continue to follow. SDOH(Care Management) Screening Will the Patient Participate in the Screening?: Yes Do you worry about having a steady place to live?: no Problems where you live: no known problems In the past 12 months, have you had to go without electric, gas, oil or water in your home?: no Have you or anyone in your house had to go without enough food to eat?: no Has lack of transportation kept you from medical appointments or from doing things needed for daily living?: no Has anyone in your support network made you feel unsafe for any reason?: no
--- NOTE | 2023-11-08 10:12 | PDOC.CMSAFE ---
Date of service: 11/08/23 Time of Service: 10:14 Care Management Safety Plan Status Status: Voluntary Reason for Wait Reason for Wait: Inpatient Admission Safety Plan Safety Plan: VOLUNTARY FOR INPATIENT PSYCHIATRIC STABILIZATION.? Patient is appropriate in all interactions since arriving at [facility]; Pt has demonstrated appropriate coping and communication skills, has articulated his or her needs and concerns and is fully engaged during staff interactions. Safety plan has been established with patient, and care team, to adhere to patient goals, identify restrictions based on behavioral status, address nutrition, and determine allowed personal belongings, tools for hygiene and personal care. Determine level of activity including ambulation, level of supervision, visitors, and determine privileges based on behaviors and level of engagement by pt. SAFETY PLAN: 1. Will remain on suicide precautions, in paper clothes 2. Will remain in room under direct supervision of one-on-one staff at all times provided by [employer]; AVERY, HEALTH EDUCATION AIDE elevator constructor. 3. May have paper cups, plates, finger foods as well as a cardboard spoon with which to eat meals. 4. Follow [facility] Management of the Admitted Behavioral Health Patient policy. 5. Comfort bath system, shower permitted with escort at RN discretion. 6. Personal belongings-soft items permitted at RN discretion. 7. Visitors; family may visit, at RN discretion. 8. Activities: soft cart items approved per RN discretion. 9.? Bathroom privileges with escort in the ED. 10. Phone: limited to cordless phone at RN discretion. Due to VOLUNTARY status, if patient wishes to leave [facility], staff will contact [facility] Crisis Screener ([phone]) and On-Call Retail Sales Assistant ([phone]) as soon as possible. In the event of elopement, notify [facility] Police ([phone]). Patient is currently voluntarily at [facility] and seeking inpatient admission when a bed becomes available. [facility] Frontline Fixed Route Operator will continue seeking placement. Please contact the Solid Waste Analyst Retail Sales Assistant ([phone]) and [facility] Fixed Route Operator ([phone]) for any needed changes in the Safety Plan. Safety plan has been provided to interdepartmental care team.
--- NOTE | 2023-11-08 11:37 | PHA.REVIEW2 ---
Pharmacy Admission Review Admission Clinical Review Admission Pharmacy Review: DVT prophylaxis (Acute) Tachycardia (Acute) Intentional overdose (Acute) Gender dysphoria (Acute) Suicidal ideations (Acute 12/04/17) Depressive disorder (Acute 12/29/17) cigarette smoke Allergy (Unknown, Verified 11/07/23 10:34) Other (See Comment) No Known Drug Allergies Allergy (Verified 11/07/23 10:34) Other (See Comment) pollen extracts Allergy (Verified 11/07/23 10:34) Other (See Comment) DUST Allergy (Unknown, Uncoded 11/07/23 10:34) Other (See Comment) Resuscitation Status Full Code Height 4 ft 11 in Weight 105.3 kg Comments Comments/Follow Ups: Per morning meeting, patient is medically cleared. Discharge pending psych evaluation. Pharmacy Admission Review Renal Dosing Renal Dosing: BUN 16 mg/dL (7-18) 11/07/23 07:30 Creatinine 0.9 mg/dL (0.55-1.02) 11/07/23 07:30 Medications needing adjustments: Reviewed (CrCl 101.3 mL/min) Anticoagulation Anticoagulation: Hgb 17.4 g/dL (11.2-15.7) H 11/07/23 07:30 Hct 52.0 % (36.0-46.0) H 11/07/23 07:30 Plt Count 213 10^3/uL (130-400) 11/07/23 07:30 Creatinine 0.9 mg/dL (0.55-1.02) 11/07/23 07:30 DVT Prophylaxis: Intervened (changed dose due to BMI > 40) Medications: Enoxaparin (40mg q12h) Relevant Labs Relevant Labs: Sodium 140 mmol/L (136-145) 11/07/23 07:30 Potassium 3.6 mmol/L (3.5-5.1) 11/07/23 07:30 Chloride 104 mmol/L (98-107) 11/07/23 07:30 Phosphorus 3.1 mg/dL (2.6-4.7) 11/07/23 07:30 Magnesium 1.8 mg/dL (1.8-2.4) 11/07/23 07:30 Electrolytes, C-Reactive P, ESR: Reviewed (No new labs for today) Cardiac Review Cardiac Review: Blood Pressure 126/97 0930 Blood Pressure 126/77 0610 Blood Pressure 106/63 0339 Blood Pressure 85/62 0339 Blood Pressure 115/68 0301 Blood Pressure 121/59 0202 Blood Pressure 129/73 0101 Blood Pressure 127/94 0001 BP, HR, EF%: Reviewed (BP 126/97 and HR 92) QTc Review QTc: Reviewed (408 on 11/07/23) IV to PO Switch IV Medications: Reviewed Home Meds Home Med List reviewed: Reviewed Relevent Home Meds Not ordered & why?: Vitamin D3, prazosin (OD), propranolol, testosterone and venlafaxine (OD) Current Meds Current Medication Order Review: Reviewed Comments Comments/Follow Ups: Per morning meeting, patient is medically cleared. Discharge pending psych evaluation.
--- NOTE | 2023-11-08 12:14 | PGE_ITS ---
Date of Service Date of service: 11/08/23 Time of Service: 12:14 Assessment and Plan Assessment and plan (1) Intentional overdose: Status: Acute Assessment and plan: OD of venlafaxine and prazosin. Hemodynamically stable w/ no arrhythmia and no signs of serotonin syndrome. He is medically cleared for mental health to evaluate. Disposition depends upon recommendations regarding outpatient psychiatric follow up vs inpatient care. Qualifiers: Encounter type: initial encounter Qualified Code(s): T50.902A - Poisoning by unspecified drugs, medicaments and biological substances, intentional self-harm, initial encounter (2) Suicidal ideations: Status: Acute Assessment and plan: patient has hx of prior suicidal attempts. He needs mental health evaluation prior to discharge. (3) Depressive disorder: Status: Acute (4) Gender dysphoria: Status: Acute (5) DVT prophylaxis: Status: Acute Assessment and plan: enoxaparin 40 mg SC daily Subjective Subjective Interval history since last seen: Mayito says that he does not want to commit suicide. He has been talking w/ his mother and they have devised their own safety plan. He will be living w/ her and she will directly observe his taking of his medications and his meds will be locked up. No sharps will be available in the home and their home has no firearms. He is willing to go to outpatient counseling regarding depression and using more safe and effective ways of dealing w/ his feelings of depression. He is currently waiting on [facility] to see him. Exam Narrative Exam Narrative: Alert, oriented, acting appropriately Denies any dyspnea or CP Lungs: clear Heart: RRR, no murmur or rub or gallops No tremors Objective Last Vital Signs Temp 36.6 C 11/08/23 09:30 Pulse 92 H 11/08/23 09:30 Resp 18 11/08/23 09:30 BP 126/97 H 11/08/23 09:30 Pulse Ox 94 11/08/23 03:39 Laboratory Results - last 24 hr 11/07/23 19:00 Urine Color Yellow Urine Clarity Clear Urine pH 6.0 Ur Specific [place] >= 1.030 H Urine Protein Negative Urine Ketones Negative Urine Blood Negative Urine Nitrite Negative Urine Bilirubin Negative Urine Urobilinogen 0.2 Ur Leukocyte Esterase Negative Urine Glucose Negative Urine Opiates Screen Negative Urine Methadone Screen Negative Ur Barbiturates Screen Negative Ur Tricyclics Screen Negative Ur Amphetamines Screen Negative U Benzodiazepines Scrn Positive A Urine Cocaine Screen Negative Ur THC Screen Negative Reviewed Pertinent PMH: Yes Objective Narrative Objective Narrative: Rhythm normal sinus rhythm w/ no PAC or PVC and normal QTC of 360 msec. PAWSS Have you Been Recently Intoxicated or Drunk Within the Last 30 days?: No Have you Ever Experienced Previous Episodes of Alcohol Withdrawal?: No Have you ever Experienced Withdrawal Seizures?: No Have you ever Experienced Delirium Tremens(DT)s?: No Have you ever undergone Alcohol Rehabilitation Treatment (i.e, inpt ot outpatient treatment programs)?: No Have you ever Experienced Blackouts?: No Have you ever Combined Alcohol with other Downers within the last 90 days?: No Have you ever Combined Alcohol with any other Substance of Abuse during the last 90 days?: No Positive Blood Alcohol level on Presentation? [PCS.BAL]: No Evidence of Increased Autonomic Activity (i.e. HR>120, tremor, sweating, agitation, nausea)?: No Result: 0 Time Spent with Patient Time Spent with Patient: 25-34 minutes Time was spent: preparing to see the patient(eg.review tests), referring, communicating with other health family day care provider, indepentently interpreting results, counseling the patient and care coordination
[2023-11-08] MEDS: Enoxaparin 40 MG/0.4 ML SYR SC (13:08)
--- NOTE | 2023-11-08 15:45 | W.PM.DS.N ---
Date of service: 11/08/23 Time of Service: 15:45 DS: Diagnosis Discharge Diagnosis (1) Intentional overdose: Status: Acute (2) Suicidal ideations: Status: Acute (3) Depressive disorder: Status: Acute (4) Gender dysphoria: Status: Acute (5) DVT prophylaxis: Status: Acute Discharge Plan Disposition Patient Disposition: Home Condition: Improving Discharge Details Reason For Visit: Depression,suicidal attempt Admit Date/Time: 11/07/23 10:00 Admit Provider: Dusty Devine Attending Provider: Dusty Devine Primary Care Provider: Joshua Thomason Hospital Course Hospital Course: This 18-year-old female >male transgender with past medical history depression, anxiety, asthma presented to the ED department after an overdose of venlafaxine and prazosin. Please see ED note and my admission H&P from 11/07/2023 for details. In summary the patient was observed overnight had no cardiovascular complications no arrhythmias he was quite somnolent initially but on the morning after his admission he was quite awake alert oriented answering questions appropriately and was remorseful of his attempted suicide. Patient and his mother had made a safety plan which she would not have immediate access to his medications and his mother give his antidepressants under direct observation. Furthermore all sharp objects would be kept locked up and his medicines would not be immediately accessible to them. MICKEY saw the patient on the day of discharge and they felt that he was not high enough risk for completion of suicide to warrant acute inpatient psychiatric care. They made a safety plan which the patient would have a follow-up on 11/09/2023 at 3 PM with a video interview and then a subsequent [id number] visit with a counselor. Patient was given information from JAMESYosvany regarding his safety plan and steps that he can take to prevent suicide and what to do if he felt that his depression was spiraling out of control again. Patient was discharged in markedly improved condition. Patient should follow-up with his primary care provider as well as his psychological counselor at [facility]. Home Meds and New Rx's Prescriptions: Continued budesonide-formoterol [Symbicort] 80-4.5 mcg/actuation HFA aerosol inhaler 2 puff inhalation BID PRN Rx Instructions: 2 inhalations twice daily; rinse mouth after use may use 1-2 inhalations every 4-6 hours as needed for wheezing, persistent cough; no more than 12 inhalations in a 24-hour period prazosin 2 mg capsule 2 mg PO QHS Qty: 30 2RF Rx Instructions: Take 1 cap 30 minutes before bedtime cholecalciferol (vitamin D3) 50 mcg (2,000 unit) capsule 50 mcg PO DAILY (DME) Aerochamber Plus Flow-Vu 1 EACH spacer 1 inhaler Inhalation PRN Qty: 1 Patient Comments: Per pt.'s mother, pt. only uses when sick. propranolol 10 mg tablet 10 mg PO DAILY Patient Comments: TAKE ONE TABLET BY MOUTH EVERY MORNING MAY USE ONE TABLET EVERY 24HRS FOR BREAKTHROUGH ANXIETY venlafaxine 37.5 mg capsule,extended release 24hr 112.5 mg PO QHS Patient Comments: TAKE THREE CAPSULES BY MOUTH AT BEDTIME testosterone cypionate 200 mg/mL oil 200 mg IM Q7D Patient Comments: INJECT 0.5ML INTO THE SHOULDER, THIGH, OR BUTTOCKS EVERY 7 DAYS Discharge Instructions Instructions: Help Prevent Suicide (DC), Depression Management for Older Adults (DC) Referrals: Joshua Thomason NP [Primary Care Provider] - (call office tomorrow for follow up appointment) [facility] [OTHER] - 11/09/23 3:00 pm (keep scheduled follow up for tomorrow) Activity:: Activity as Tolerated Equipment/Supplies:: No Equipment Needed Diet:: Normal Diet Discharge Orders Discharge Orders: Discharge Order (Routine); Ordered 11/08/23 Ordered By: Dusty Devine DS: Summary Time Spent with Patient providing and/or coordinating discharge services: Less than 30 minutes Specific discharge activities: Interview/exam of patient; review of discharge instructions, completion of prescriptions/discharge instructions; discussion w/ nursing and CM; documentation of hospital visit Status at Discharge Functional status at discharge: independent ambulation Overall status at discharge: patient is back to baseline Mental Status: mental status grossly normal Speech and Movement: speech and movement normal Mood: congruent mood Affect: normal affect Quality:SDOH Health Related Social Needs: No Data to Display Exam Narrative Exam Narrative: Alert, oriented, acting appropriately Denies any dyspnea or CP Lungs: clear Heart: RRR, no murmur or rub or gallops No tremors Psych Mental Status: mental status grossly normal Speech and Movement: speech and movement normal Mood: congruent mood Affect: normal affect DS: Data Vitals/I&O Vitals and I&O: Vital Signs Temperature 36.6 C 11/08/23 09:30 Temperature Source Temporal Artery Scan 11/08/23 09:00 Pulse 92 H 11/08/23 09:30 Pulse 94 H 11/08/23 12:00 Respiratory Rate 32 H 11/08/23 12:00 Respiratory Effort Normal, Non-Labored 11/08/23 09:00 Respiratory Depth Normal 11/08/23 09:00 Respiratory Pattern Normal 11/08/23 09:00 Blood Pressure 126/97 H 11/08/23 09:30 Blood Pressure Mean 102 11/08/23 09:30 Blood Pressure Position Sitting 11/08/23 09:00 Pulse Oximetry 94 11/08/23 03:39 Respiratory End-tidal CO2 43 11/07/23 12:50 Oxygen Delivery Method Room Air 11/08/23 09:00 Oxygen Flow Rate 0 11/08/23 09:00 Pain Level 0 11/08/23 09:00 Intake & Output 11/07/23 11/08/23 11/08/23 23:59 11:59 23:59 Intake Total 460 / 660 200 / 660 Output Total 250 / 250 650 / 650 Balance -250 / 810 -190 / 10 200 / 10 Weight 106 kg 105.3 kg Intake: IV 20 / 20 Oral 440 / 640 200 / 640 Output: Urine 250 / 250 650 / 650 Other: Urine Color Light Laisha Light Laisha Dark Laisha Urine Appearance Clear Clear Comment Patient voided in commode. nurse was with pt Voiding Methods Bedside Commode Bedside Commode Data Completed and Pending Labs on day of discharge: Labs from last 24 hours 11/07/23 19:00 Urine Color Yellow Urine Clarity Clear Urine pH 6.0 Ur Specific [place] >= 1.030 H Urine Protein Negative Urine Ketones Negative Urine Blood Negative Urine Nitrite Negative Urine Bilirubin Negative Urine Urobilinogen 0.2 Ur Leukocyte Esterase Negative Urine Glucose Negative Urine Opiates Screen Negative Urine Methadone Screen Negative Ur Barbiturates Screen Negative Ur Tricyclics Screen Negative Ur Amphetamines Screen Negative U Benzodiazepines Scrn Positive A Urine Cocaine Screen Negative Ur THC Screen Negative PFSH All Active Problems DVT prophylaxis (Acute) Tachycardia (Acute) Intentional overdose (Acute) 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 Seen by [facility]. at 16 now followed by [facility] taking testosterone BMI (body mass index), pediatric, 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% for age (Acute 01/26/13) nutriotin consult and labs- Normal 02/07 Suicidal ideations (Acute 12/04/17) suicide attempt x2. Hospitalization at [facility] 01/16 -01/21 2023 Mild persistent asthma without complication (Acute 01/26/13) Insomnia (Acute 02/05/18) Depressive disorder (Acute 12/29/17) needs new counselor - sp [facility] hospitalizations x 4 trial of Wellbutrin and Lexapro were not helpful. Now on Venlafaxine Acanthosis nigricans (Acute) Medical History COVID-19 Learning disability ASTHMA MILD INTERMIT - Surgical History Tonsillectomy and adenoidectomy age 2 1/2 years Family History Mother Asthma Father Healthy adult on routine physical examination Social History Smoking/Tobacco Use Status: Never Second Hand Exposure: No Smoking risk assessment performed?: Yes Alcohol Intake: never Drug use: Occasionally Substance use type: marijuana Adopted: No Foster care: No Housing: house Education Level: high school Pets and animals: Yes (1 cat) Pets and animals: cat(s) Current gender identity: trans [id number] Seatbelt use: always Helmet use: Yes Helmet use: always Water heater temp set <120 deg: Yes Fire extinguisher in home: Yes Carbon monox detector in home: Yes Firearms in home: No Do you feel safe at home: Yes Time Spent with Patient Time Spent with Patient: <45 minutes Time was spent: referring, communicating with other health career discovery teacher and care coordination
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
== END 2023-11-08 15:50 | disposition home or self-care (01) | DRG 918 ==
LOC: ER 11:00 → ICU 12:59
PROVIDERS: Admitting Provider Internal Medicine; Emergency Provider Emergency Medicine; PCP Nurse Practitioner Pediatrics; Visit Provider Internal Medicine
DX: T43.212A Poisoning by selective serotonin and norepinephrine reuptake inhibitors, intentional self-harm, initial encounter (principal); R45.851 Suicidal ideations; F32.A Depression, unspecified; F64.9 Gender identity disorder, unspecified; R40.0 Somnolence; R00.0 Tachycardia, unspecified; J45.30 Mild persistent asthma, uncomplicated; G47.00 Insomnia, unspecified; L83 Acanthosis nigricans; F81.9 Developmental disorder of scholastic skills, unspecified; F41.9 Anxiety disorder, unspecified
CPT/HCPCS: 00123; 80053; 80307; 82550; 82805; 93005; 96127; 96365; 96366; 96375; 96376; 99291; J1650; 80320; 80329; 81003; 83735; 84100; 84439; 84443; 85025; 93010; 99222; 99238; J2060; J2405; J3360; J3475

== ENCOUNTER 2024-03-15 16:04 | Outpatient (CLI) | payer BC, SELFPAY ==
[2024-03-15 14:57] LABS: Abs Immature Grans 0.04 10^3/uL (0.0-0.06); Absolute Basophil Count 0.02 10^3/uL (0.0-0.2); Absolute Lymphocyte Count 2.71 10^3/uL (1.2-3.4); Absolute Monocyte Count 0.54 10^3/uL (0.1-0.8); Absolute Neutrophil Count 4.28 10^3/uL (1.2-6.7); Basophils % 0.3 %; Eosinophils % 1.3 %; HCT 54.5 % (36.0-46.0); HGB 17.9 g/dL (11.2-15.7); Immature Grans % 0.5 %; Lymphocytes % 35.2 %; MCH 28.5 pg (27.0-33.0); MCHC 32.8 % (32.0-36.0); MCV 87 fL (80-95); MPV 10.9 fL (8.0-11.0); Neutrophils % 55.7 %; Platelet Count 205 10^3/uL (130-400); RBC 6.27 10^6/uL (3.93-5.22); RDW 12.8 % (11.7-14.6); RDW-SD 40.9 fL; WBC 7.69 10^3/uL (4.4-10.8)
[2024-03-15 15:07] LABS: Diff Comment Diff Reviewed; RBC Morphology Normal
[2024-03-20 16:52] LABS: Testosterone, Total 641 ng/dL (8-60)
== END 2024-03-15 16:05 | disposition home or self-care (01) ==
LOC: LBO 16:12
PROVIDERS: PCP Nurse Practitioner Pediatrics; Visit Provider Advanced Practice Midwife
DX: F64.9 Gender identity disorder, unspecified (principal)
CPT/HCPCS: 36415; 84403; 85025

== ENCOUNTER 2024-09-08 14:40 | Outpatient (REF) | payer BC, SELFPAY ==
[2024-09-08 15:39] LABS: COVID-19 PCR Negative (Negative); Influenza A PCR Positive (Negative); Influenza B PCR Negative (Negative); RSV PCR Negative (Negative)
[2024-09-08 15:42] LABS: Source Nasopharynx
== END 2024-09-08 14:41 | disposition home or self-care (01) ==
LOC: LBN 14:40
PROVIDERS: PCP Nurse Practitioner Pediatrics; Referring Provider Nurse Practitioner Family; Visit Provider Nurse Practitioner Family
DX: J11.1 Influenza due to unidentified influenza virus with other respiratory manifestations (principal); J02.9 Acute pharyngitis, unspecified; J45.30 Mild persistent asthma, uncomplicated
CPT/HCPCS: 87637; 87081